=== PATIENT | male | born 1955 | race Caucasian/White ===

== ENCOUNTER 2016-08-28 06:46 | Day surgery (SDC) | payer BC ==
[~2016-08-28 06:46] MED LIST: ALPRAZolam 0.25 MG TAB PO PRN; ALPRAZolam 0.5 MG TAB PO PRN; ASPIRIN 325 MG TAB PO STA; ATORVASTATIN 80 MG TAB PO STA; NITROGLYCERIN SL TABS 0.4 MG TAB SUBLINGUAL PRN; SODIUM CHLORIDE 0.9% 1,000 ML in EMPTY BAG 1 BAG IV ONE
[2016-08-28] MEDS ORDERED: SODIUM CHLORIDE 0.9% 1,000 ML IV ONE (07:27)
[2016-08-28 07:40] LABS: Glucose,Whole Blood 183 mg/dL (75-99)
[2016-08-28] MEDS ORDERED: HEPARIN SODIUM 1,000 UNIT/ML VIAL ONE (08:37)
[2016-08-28] MEDS ORDERED: fentaNYL (PF) 50 MCG/ML 2 ML AMP ONE (08:37)
[2016-08-28] MEDS ORDERED: LIDOCAINE 2% INJ 20 MG/ML (20 ML MDV) ONE (08:37)
[2016-08-28] MEDS ORDERED: diphenhydrAMINE 50 MG/ML 1 ML VIAL ONE (08:37)
[2016-08-28] MEDS ORDERED: VERAPAMIL 2.5 MG/ML 2 ML AMP ONE (08:38)
[2016-08-28] MEDS ORDERED: SODIUM CHLORIDE 0.9% (PF) 10 ML VIAL ONE (08:38)
[2016-08-28] MEDS ORDERED: fentaNYL (PF) 50 MCG/ML 2 ML AMP IV ONE (09:14)
[2016-08-28] MEDS ORDERED: diphenhydrAMINE 50 MG/ML 1 ML VIAL IVP ONE (09:14)
[2016-08-28] MEDS ORDERED: LIDOCAINE 2% INJ 20 MG/ML SQ ONE (09:18)
[2016-08-28] MEDS ORDERED: VERAPAMIL SYRINGE (5 MG/10 ML) INTRAARTER ONE (09:20)
[2016-08-28] MEDS ORDERED: HEPARIN SODIUM 1,000 UNIT/ML VIAL IV ONE (09:21)
[2016-08-28] MEDS ORDERED: BIVALIRUDIN BOLUS 250 MG/50 ML IV ONE (09:35)
[2016-08-28] MEDS ORDERED: BIVALIRUDIN 250 MG in SODIUM CHLORIDE 0.9% 50 ML IV ONE (09:35)
[2016-08-28] MEDS ORDERED: CLOPIDOGREL 75 MG TAB ONE (09:35)
[2016-08-28] MEDS ORDERED: CLOPIDOGREL 75 MG TAB PO ONE (09:37)
[2016-08-28] MEDS ORDERED: NITROGLYCERIN 1000MCG/10ML SYRINGE INTRACORON ONE (09:49)
[2016-08-28] MEDS ORDERED: IOHEXOL 350 MG/ML 100 ML BOTTLE INJ ONE (10:00)
[2016-08-28] MEDS ORDERED: RX INFO: IV CONTRAST WAS GIVEN 1 EACH MISC MISCELLANE PRN (10:12)
[2016-08-28] MEDS ORDERED: ATROPINE SULFATE 0.1 MG/ML 10ML SYRINGE IV PRN (10:12)
[2016-08-28] MEDS ORDERED: ZOLPIDEM 5 MG TAB PO PRN (10:12)
[2016-08-28] MEDS ORDERED: NITROGLYCERIN SL TABS 0.4 MG TAB SUBLINGUAL PRN (10:12)
[2016-08-28] MEDS ORDERED: MAG HYDROX/AL HYDROX/SIMETH 30 ML CUP PO PRN (10:12)
[2016-08-28] MEDS ORDERED: Insulin Aspart (For Pump) 100 UNIT/ML VIAL SQ-PUMP SCH (10:15)
[2016-08-28] MEDS ORDERED: SODIUM CHLORIDE 0.9% 1,000 ML IV SCH (10:15)
[2016-08-28 10:54] VITALS: BMI 27.7
[2016-08-28] MEDS: LISINOPRIL 5 MG TAB PO SCH ×2 (11:52→20:16)
[2016-08-28] MEDS ORDERED: INSULIN LISPRO (humaLOG) 300 UNIT/3 ML VIAL SQ PRN (14:46)
[2016-08-28] MEDS ORDERED: INSPUCOR MISCELLANE PRN ×2 (14:46→15:37)
[2016-08-28] MEDS ORDERED: INSULIN PUMP BASAL RATES 1 EACH MISC MISCELLANE PRN (14:46)
[2016-08-28] MEDS ORDERED: INSULIN PUMP ACTIVE INSULIN 1 EACH MISC MISCELLANE PRN (15:35)
[2016-08-28] MEDS ORDERED: INSULIN PUMP TARGET GLUCOSE 1 EACH MISC MISCELLANE PRN (15:35)
[2016-08-28] MEDS: INSULIN PUMP MEAL BOLUS 1 UNIT MISC MISCELLANE SCH ×2 (18:09→21:58)
--- NOTE | 2016-08-28 19:49 | PTCA ---
DATE OF SERVICE: Mr. Amaro is a 61-year-old man with known history of hypertension, hyperlipidemia, diabetes mellitus, who had an abnormal myocardial perfusion imaging underwent cardiac catheterization that showed evidence of inducible ischemia involving the lateral wall. The patient has been complaining of dyspnea on exertion. In view of that, recommendation was made regarding angioplasty and stenting. The procedure as well as risks and complications were discussed with the patient who is in full understanding and agreement. PROCEDURE: A 6 Albanian EBU 3.75 guiding catheter introduced into the system, after cannulating the left main, a 0.014 balanced medium weight J-wire was advanced across the lesion, positioned distally. Then a 2.5 x 12 mm balloon Neurologix balloon was advanced. Two inflations maximum at 10 atmospheres were done. Following that, the balloon was removed and a 2.75 x 28 mm Xience Alpine stent was deployed. It was postdilated at 14 atmospheres. After the last inflation, after appropriate wait, the balloon and the guidewire were withdrawn back in the guiding catheter. Images were obtained and repeated. Those images reveal stable successful stenting. At that point, the guiding catheter, the balloon and the guidewire removed. The sheath was removed. Hemostasis was obtained with deployment of TR band. There were no immediate complications. The patient is to return to his room in stable condition. Of note, the patient received Angiomax per protocol as well as oral loading dose of clopidogrel. He has no significant EKG changes or chest discomfort with the inflation. RESULT: Successful stenting of the proximal left circumflex and the first obtuse marginal branch with reduction in stenosis from 80% to 0%. RECOMMENDATION: Patient will be continued aspirin, Plavix beta orlando, CHRISTIN inhibitor and statin. The importance of dual antiplatelet treatment will be discussed with the patient and his family, who is in full understanding and agreement.
--- NOTE | 2016-08-28 19:51 | LTR ---
August 28, 2016 RE: Cameron Amaro Dear Dr. Leavitt: I had the pleasure of performing cardiac catheterization and coronary angioplasty and stenting on Mr. Amaro at [facility] on August 28, 2016 and full copy of the procedure note will be forwarded to you. In brief he was found to have significant obstructive disease involving the proximal left circumflex and the first obtuse marginal branch and underwent successful stenting of that vessel using a drug-eluting stent. I am hopeful that this procedure will stabilize his status. Thank you again for allowing me to participate in his care. Please feel free to call for any questions. Sincerely, KIRK BERRY MD
--- NOTE | 2016-08-28 19:51 | CC ---
DATE OF SERVICE: Mr. Amaro is a 61-year-old male with known history of hypertension, hyperlipidemia, diabetes mellitus, history of cerebrovascular accident, who recently underwent myocardial perfusion imaging that showed evidence of lateral wall ischemia. The patient has symptoms of dyspnea on exertion. In view of that, recommendation was made regarding cardiac catheterization. The procedure as well as risks and complications were discussed with the patient, who was in full understanding and agreement. PROCEDURE: Patient was brought to the slab polisher in a fasting, semi-sedated state after receiving fentanyl and Benadryl. He was draped and prepped in conventional fashion. Using Xylocaine anesthesia and Seldinger technique, a 6 Greek sheath was introduced in the right radial artery. Selective right and left coronary angiography was performed using 5 Greek 3-1/2 Bend right and left Ventura catheters. Multiple views were taken of the arteries, including hemiaxial views. Following that, a 5 Greek tight pigtail catheter was introduced into the left ventricle and pressures were calculated. Following that, catheters were removed. Images were reviewed. Of note, the patient received 5000 units of intravenous heparin as well as intra-arterial Verapamil. FINDINGS FLUOROSCOPY: There is calcification involving the proximal LAD and left circumflex. LEFT MAIN: This is a short-sized vessel bifurcating into left circumflex and left anterior descending artery. Left main coronary artery is without any significant obstructive coronary artery disease. LEFT ANTERIOR DESCENDING ARTERY: This is a large-sized vessel reaching toward the apex with a wrap around the apex segment giving rise to 2 diagonal branches of small caliber. The left anterior descending artery in the proximal and mid segments as well as the distal segment has mild intimal diffuse disease of 20% to 30%. LEFT CIRCUMFLEX: This is a non-dominant vessel giving rise to 2 obtuse marginal branches. The first one is large in caliber. Prior to the bifurcation of the obtuse marginal branch, there is a 70% stenosis. Subsequently in the obtuse marginal branch there is an 80% eccentric lesion. The rest of the vessel has no high-grade stenosis. RIGHT CORONARY ARTERY: This is a large dominant vessel bifurcating into PDA and posterolateral segment and branches. The PDA and PLV have diffuse intimal disease without any evidence of high-grade stenosis. Left ventriculogram was not performed. HEMODYNAMICS: There was no gradient across the aortic valve. The left ventricular end-diastolic was 16 mmHg. CONCLUSION: 1. Critical stenosis involving the proximal left circumflex and the obtuse marginal branch. 2. Mild diffuse disease in the LAD and the right coronary artery. RECOMMENDATION: In view of findings and anatomy, I have recommended proceeding with angioplasty and stenting of the left circumflex. The procedure as well as risks and complications were discussed with the patient, who is in full understanding and agreement.
[2016-08-28 20:33] LABS: Glucose,Whole Blood 138 mg/dL (75-99)
[2016-08-28] MEDS ORDERED: ATORVASTATIN 40 MG TAB PO SCH (21:00)
[2016-08-29 01:55] LABS: Glucose,Whole Blood 125 mg/dL (75-99)
[2016-08-29 06:04] LABS: Glucose,Whole Blood 128 mg/dL (75-99)
[2016-08-29 06:51] LABS: Anion Gap 11 mmol/L; Blood Urea Nitrogen 23 mg/dL (9-20); Calcium 8.5 mg/dL (8.4-10.2); Carbon Dioxide 21 mmol/L (22-30); Chloride 108 mmol/L (98-107); Glucose 124 mg/dL (74-99); Non-African American GFR(MDRD) >60 (>60 ml/min/1.73 sqM); Potassium 4.3 mmol/L (3.5-5.1); Sodium 140 mmol/L (137-145)
[2016-08-29] MEDS: INSULIN PUMP MEAL BOLUS 1 UNIT MISC MISCELLANE SCH (07:46)
[2016-08-29] MEDS: LISINOPRIL 5 MG TAB PO SCH (07:48)
[2016-08-29 07:50] VITALS: BP 149/70; PULSE 60; RESP 18; TEMP 96.8
--- NOTE | 2016-08-29 08:18 | LTR ---
August 29, 2016 RE: Cameron Amaro Dear Dr. Desai: I had the pleasure of seeing Mr. Amaro in electrophysiology follow up. Cameron underwent ablation for atrial fibrillation (pulmonary vein isolation) successfully. His pulmonary veins were completely isolated at the end of the procedure. In addition, he also went into atrial flutter during the procedure and he underwent successful ablation for atrial flutter with termination of flutter along with proven bidirectional block along the RF line. He will be monitored in the hospital for 48 hours and will be discharged home thereafter. This morning I noted his blood pressure is somewhat elevated and if it remains elevated in this manner, I would maximize his antihypertensive therapy in the future. If you have any questions please do not hesitate to give me a call. Sincerely, KANIKA CHEW MD
--- NOTE | 2016-08-29 08:53 | PN ---
Mr. Amaro is a 61-year-old male with a known history of hypertension, hyperlipidemia, and diabetes mellitus, who had a normal myocardial perfusion imaging, underwent cardiac catheterization and stenting of his left circumflex obtuse marginal branch. He is doing well this morning. His breathing has been stable. He denies any chest pain. No dizziness. No palpitation. He denies any nausea or vomiting. He has been ambulating without difficulty. He continues to be on aspirin once a day, Lipitor 40 mg daily, Plavix 75 mg daily, insulin; in addition to lisinopril 5 mg twice a day. PHYSICAL EXAMINATION: Blood pressure running in the 140s to 150s with the heart rate in the 50s. LUNGS: Clear. HEART: Regular rate and rhythm. S1 and S2, no S3, no rub. ABDOMEN: Soft, nontender. EXTREMITIES: No edema. Right radial pulse intact. EKG shows no acute changes. Lab data revealed BUN and creatinine 23 and 1.1. IMPRESSION: 1. Coronary artery disease with stenting of the left circumflex, obtuse marginal branch. 2. Hypertension. 3. Hyperlipidemia. 4. Diabetes mellitus. RECOMMENDATIONS: Patient will be discharged home today and followed as an outpatient.
[2016-08-29] MEDS ORDERED: ASPIRIN 325 MG TAB PO SCH (09:00)
[2016-08-29] MEDS ORDERED: CLOPIDOGREL 75 MG TAB PO SCH (10:14)
[2016-08-29 12:31] LABS: Hemoglobin A1C 7.3 % (4.2-6.1)
[2016-08-29] MEDS ORDERED: WARFARIN 5 MG TAB PO ONE ×2 (18:00)
== END 2016-08-29 09:00 | disposition home or self-care (01) ==
LOC: CATHCVL 06:46 → 6SEL 10:10 → CATHCVL 08-29 09:00
PROVIDERS: ATTEND Internal Medicine Interventional Cardiology
DX: I25.10 Atherosclerotic heart disease of native coronary artery without angina pectoris (principal); I25.84 Coronary atherosclerosis due to calcified coronary lesion; Z86.73 Personal history of transient ischemic attack (TIA), and cerebral infarction without residual deficits; I10 Essential (primary) hypertension; Z82.49 Family history of ischemic heart disease and other diseases of the circulatory system; E78.2 Mixed hyperlipidemia; E11.9 Type 2 diabetes mellitus without complications; M19.90 Unspecified osteoarthritis, unspecified site; Z79.4 Long term (current) use of insulin; Z79.02 Long term (current) use of antithrombotics/antiplatelets; Z79.899 Other long term (current) drug therapy
CPT/HCPCS: 93458; 85347; 80048; 83036; C9600; C1769 ×2; C1887; C1894; C1725; C1874; J2001; J1200; Q9967; J3010; J1644; J0583

== ENCOUNTER → 2016-09-25 | Outpatient (CLI) | payer BC ==
--- NOTE | 2016-09-25 15:38 | NM ---
EXAMINATION TYPE: NM DatScan Brain SPECT DATE OF EXAM: 09/25/2016 2:50 PM COMPARISON: NONE HISTORY: Trauma TECHNIQUE: 10 drops of Lugol's solution was administered 1 hour prior to injection as a thyroid bloc marco agent. After the administration of 4.55 mCi I-123 Ioflupane DaTscan. Images obtained 3 hours p ost injection. SPECT images of the brain were acquired with axial and coronal reconstructions. FINDINGS: There is marked reduction of uptake in the right stratum. This may be seen in radiographic Parkinson' s disease or Parkinson's syndrome. IMPRESSION: MARKED ASYMMETRY IN THE UPTAKE OF THE SCROTUM BILATERALLY. THIS MAY BE DUE TO EITHER IDIOPATHIC PARKI NSON'S DISEASE OR PARKINSON'S SYNDROME. DUE TO THE MARKED ASYMMETRY A REPEAT MRI OF THE BRAIN IS SUGG ESTED TO EXCLUDE A VASCULAR CAUSE.
== END | disposition home or self-care (01) ==
LOC: RADNMMAIN 09:54
PROVIDERS: ATTEND Psychiatry & Neurology Pain Medicine
DX: R25.1 Tremor, unspecified (principal)
CPT/HCPCS: 78607; A9584